=== PATIENT | female | born 1995 | race American Indian/Alaskan Native ===

== ENCOUNTER 2016-09-16 21:45 | Outpatient (CLI) | payer BC, MEDICAID ==
[2016-09-17 00:23] LABS: Bilirubin,Urine NEG (Negative); Blood,Urine NEG (Negative); Ketones,Urine NEG (Negative); Leukocyte Esterase,Urine TR (Negative); Mucus,Urine FEW /HPF; Nitrite,Urine NEG (Negative); Protein,Urine <15 mg/dL mg/dL (Negative); Urobilinogen,Urine < 2.0 mg/dL (<2.0)
[2016-09-17] MEDS ORDERED: LACTATED RINGERS 500 ML IV ONE (00:45)
[2016-09-17] MEDS ORDERED: BRETHINE SUB-Q PRN (02:35)
[2016-09-17] MEDS ORDERED: LACTATED RINGERS 1,000 ML IV SCH (03:00)
[2016-09-17 03:24] VITALS: BP 114/77
== END 2016-09-17 04:13 | disposition home or self-care (01) ==
LOC: TRG 21:45
PROVIDERS: ATTEND Obstetrics & Gynecology
DX: O62.0 Primary inadequate contractions (principal); O77.9 Labor and delivery complicated by fetal stress, unspecified; Z3A.34 34 weeks gestation of pregnancy
CPT/HCPCS: 59025; 81001; 96360; 96361; 96372; J3105; J7120

== ENCOUNTER 2016-09-26 21:33 | Outpatient (CLI) | payer BC, MEDICAID ==
[2016-09-26 21:46] VITALS: BP 104/84
[2016-09-26 22:13] LABS: Bilirubin,Urine NEG (Negative); Blood,Urine NEG (Negative); Ketones,Urine NEG (Negative); Leukocyte Esterase,Urine NEG (Negative); Mucus,Urine FEW /HPF; Nitrite,Urine NEG (Negative); Protein,Urine <15 mg/dL mg/dL (Negative); Urobilinogen,Urine < 2.0 mg/dL (<2.0)
[2016-09-26] MEDS ORDERED: LACTATED RINGERS 1,000 ML ONE (22:29)
[2016-09-26] MEDS ORDERED: LACTATED RINGERS 1,000 ML IV SCH (23:00)
[2016-09-26] MEDS ORDERED: VISTARIL PO ONE (23:01)
== END 2016-09-26 23:06 | disposition home or self-care (01) ==
LOC: TRG 21:33
PROVIDERS: ATTEND Obstetrics & Gynecology
DX: O62.0 Primary inadequate contractions (principal); Z3A.35 35 weeks gestation of pregnancy
CPT/HCPCS: 81001; 96360; J7120; Q0177

== ENCOUNTER 2016-10-04 00:05 | Inpatient (IN) | payer BC, MEDICAID ==
[~2016-10-04 00:05] MED LIST: POLYCILLIN/NS 2 GM/100 ML 2 GM/100 ML BAG IV ONE
[2016-10-04] MEDS ORDERED: LACTATED RINGERS 1,000 ML ONE (00:25)
[2016-10-04] MEDS ORDERED: BRETHINE IVP PRN (01:58)
[2016-10-04] MEDS ORDERED: ZOFRAN IV PRN (01:58)
[2016-10-04] MEDS ORDERED: BRETHINE SUB-Q PRN (01:58)
[2016-10-04] MEDS ORDERED: STADOL IV PRN (01:58)
[2016-10-04] MEDS ORDERED: ePHEDrine SULFATE IV PRN ×2 (01:58→11:30)
[2016-10-04] MEDS ORDERED: MINERAL OIL PO PRN (01:58)
[2016-10-04] MEDS ORDERED: PITOCin/NS 20 UNIT/1000ML DRIP 20 UNIT/1,000 ML BAG IV SCH (02:00)
[2016-10-04] MEDS ORDERED: LACTATED RINGERS 1,000 ML IV SCH ×2 (02:00)
[2016-10-04] MEDS ORDERED: PITOCin/NS 30 UNIT/500ML 30 UNIT/500 ML BAG IV SCH ×3 (02:00→06:00)
[2016-10-04 02:15] LABS: Hematocrit 30.3 % (30.3-42.9); Hemoglobin 10.3 gm/dl (10.1-14.3); Mean Corpuscular HGB Conc 34 % (30-34); Mean Corpuscular Hemoglobin 30 pg (28-32); Mean Corpuscular Volume 88 fl (79-97); Platelet Count 203 K/mm3 (140-440); Red Blood Count 3.44 M/mm3 (3.65-5.03); Red Cell Distribution Width 13.5 % (13.2-15.2); White Blood Count 9.3 K/mm3 (4.5-11.0)
[2016-10-04 02:25] LABS: Bilirubin,Urine NEG (Negative); Blood,Urine NEG (Negative); Ketones,Urine 20 mg/dL (Negative); Leukocyte Esterase,Urine NEG (Negative); Mucus,Urine FEW /HPF; Nitrite,Urine NEG (Negative); Protein,Urine <15 mg/dL mg/dL (Negative); Urobilinogen,Urine < 2.0 mg/dL (<2.0)
[2016-10-04] MEDS ORDERED: POLYCILLIN/NS 2 GM/100 ML 2 GM/100 ML BAG IV ONE (02:28)
--- NOTE | 2016-10-04 03:14 | History and Physical Report ---
History of Present Illness Date of examination: 10/04/16 Date of admission: 10/04/16 01:58 Chief complaint: 21 yo A1 at 37 weeks EDC who came in leah at 3 cm and was found to have JOSE of 6 compatible with probable ruptured membranes or oligohydramnios. She is admitted for delivery. Known GBS positive so will give antibiotics and augment if needed. History of present illness: Remainder of H&P from [facility] and confirmed today OB Intake Father of baby: Joshua Britton Vital Signs Height: 60 in. Weight (lb): 87 BMI: 17 Pre- Weight: 95 BP: 100/ 62 mm Hg Ur. Protein: negative Ur. Glucose: negative Chief Complaint/Current Status: Pt. presents x missed period; C/O discharge x 2 wks..............................driggins Menstrual History Regularity: regular Menses every: 28 days Duration: 5 to 7 LMP: 01/11/2016 LMP reliability: definite test type: urine test Date: 02/11/2016 EDC Calculations LMP: 10/17/2016 EDC Confirmation: 10/17/2016 Gestational Age: 9 1/7 weeks Past History : 3 Elect. Ab: 1 # 2 Delivery date: 2013 Delivery type: EAB Comments: denies Past Medical History: Reviewed history from 05/08/2012 and no changes required: Asthma inhaler use pt was dx with "stunted growth" had a feeding tube in place. It was removed when she was 14yo. Past Surgical History: Reviewed history from 05/08/2012 and no changes required: esoph surgery for acid reflux 10yo feeding tube Past Medical History Abnormal PAP: negative LULÚ Exposure: negative Infertility: negative Uterine Anomaly: negative Uterine Surgery (not C/S): negative Other Gynecologic Problems: negative Social Hx: Patient is single Student: [employer] Smoking History: Patient has never smoked. Infection History Hx of STD: none Personal hx. of genital herpes: no Partner hx. of genital herpes: no Rash, Viral, or Febrile illness since last LMP? no Varicella/Chicken Pox Status: Immunized TB Risk: no Genetic History Congenital Heart Defect: Mom: no Dad: no Karely Disease: Mom: no Dad: no Thalassemia Mom: no Dad: no Neural Tube Defect Mom: no Dad: no Down's Syndrome Mom: no Dad: no Yannick-Sachs Mom: no Dad: no Sickle Cell Disease/Trait Mom: no Dad: no Hemophilia Mom: no Dad: no Muscular Dystrophy Mom: no Dad: no Cystic Fibrosis Mom: no Dad: no [place] Chorea Mom: no Dad: no Mental Retardation Mom: no Dad: no Fragile X Mom: no Dad: no Other Genetic/Chromosomal Disorder Mom: no Dad: no Child w/other defect Mom: no Dad: no Enviromental Exposures Xray Exposure: no Medication, drug, or alcohol use since LMP: no Chemical/Other Exposure: no Exposure to Cat Liter: no Hx of Parvovirus (Fifth Disease): no Occupational Exposure to Children: none Active Medications (reviewed today): DEPO-PROVERA 150 MG/ML IM SUSP (MEDROXYPROGESTERONE ACETATE) 1 IM injection q3 months Current Allergies: No known allergies Laboratory Results Date/Time Collected: 03/15/2016 Routine Urinalysis Leukocytes: negative Nitrite: negative Urobilinogen: negative Protein: negative Blood: negative Ketone: negative Bilirubin: negative Glucose: negative Urine HCG: positive Review of Systems General Denies fever, chills, sweats, anorexia, fatigue, weakness, malaise, weight loss and sleep disorder. Denies nausea, vomiting, headache, swelling of legs, abdominal pain, vaginal discharge, vaginal bleeding and contractions. Denies vaginal discharge, incontinence, dysuria, hematuria, urinary frequency, amenorrhea, menorrhagia, abnormal vaginal bleeding, pelvic pain, genital sores, decreased libido, painful periods, painful sex, urinary urgency, hot flashes, vaginal dryness, vaginal itching and vaginal odor. CV Denies chest pains, palpitations, syncope, dyspnea on exertion, orthopnea, PND and peripheral edema. Resp Denies cough, dyspnea at rest, excessive sputum, hemoptysis, wheezing and pleurisy. GI Denies nausea, vomiting, diarrhea, constipation, change in bowel habits, abdominal pain, melena, hematochezia, jaundice, gas/bloating, indigestion/ heartburn, dysphagia and odynophagia. Endo Denies cold intolerance, heat intolerance, polydipsia, polyphagia, polyuria and unusual weight change. Breast Denies left breast lump, right breast lump, nipple discharge, bloody discharge from nipple, breast pain, abnormal mammogram and breast enlargement. MS Denies back pain, joint pain, joint swelling, muscle cramps, muscle weakness, stiffness, arthritis, sciatica, restless legs, leg pain at night and leg pain with exertion. Derm Denies rash, itching, dryness and suspicious lesions. Neuro Denies paralysis, paresthesias, headache, seizures, tremors, vertigo, transient blindness, frequent falls, frequent headaches and difficulty walking. Psych Denies depression, anxiety, irritability and mood swings. Eyes Denies blurring, diplopia, irritation, discharge, vision loss, eye pain and photophobia. ENT Denies earache, ear discharge, tinnitus, decreased hearing, nasal congestion, nosebleeds, sore throat and hoarseness. Allergy Denies urticaria, allergic rash, hay fever and recurrent infections. Heme Denies abnormal bruising, bleeding and enlarged lymph nodes. PHYSICAL EXAM HEENT: PERRLA, normal conjunctiva, external nose and nasal mucosa normal, oropharynx clear Neck/Thyroid: supple, thyroid normal Skin no significant abnormal lesions or rashes Chest: respiratory effort normal, clear to auscultation Breasts: normal without skin changes or masses CV: regular, normal S1-S2, no murmur, no rub, no gallop Abdomen: normal bowel sounds, soft, nontender, no HSM Musculoskeletal: grossly normal ROM in joints, no joint tenderness or muscle weakness Neuro: grossly normal DTRs, sensation, strength, cranial nerves Extremities: no clubbing, cyanosis, or edema [employer] Exams Vulva/Vagina: No lesions, normal BUS, normal rugae Cervix: No lesions; no cervical motion tenderness Uterus: normal size and position, midline, mobile Adnexae: no masses or tenderness Rectovaginal: no masses or tenderness Flowsheet View for Follow-up Visit Estimated weeks of gestation: 9 09/04 Weight: 87 Blood pressure: 100 / 62 Urine protein: negative Urine glucose: negative Urine nitrite: negative Past History - Obstetrical History : 3 Medications and Allergies Allergies Allergy/AdvReac Type Severity Reaction Status Date / Time No Known Allergies Allergy Verified 03/20/16 20:00 Home Medications Medication Instructions Recorded Confirmed Last Taken Type No Known Home Medications [No 10/04/16 10/04/16 Unknown History Reported Home Medications] Active Meds: Active Medications Butorphanol Tartrate (Stadol) 2 mg IV Q2H PRN PRN Reason: Pain , Severe (7-10) Ampicillin Sodium (Polycillin/Ns 1 Gm/50 Ml) 1 gm in 50 mls @ 100 mls/hr IV Q4HR MARIO PRN Reason: Protocol Lactated Ringer's (Lactated Ringers) 1,000 mls @ 125 mls/hr IV DIRECT MARIO Oxytocin/Sodium Chloride (Pitocin/Ns 20 Unit/1000ml Drip) 20 unit in 1,000 mls @ 125 mls/hr IV DIRECT MARIO Oxytocin/Sodium Chloride (Pitocin/Ns 30 Unit/500ml) 30 unit in 500 mls @ 0 mls/ hr IV TITR MARIO; Per Protocol PRN Reason: Protocol Oxytocin/Sodium Chloride (Pitocin/Ns 30 Unit/500ml) 30 unit in 500 mls @ 1 mls/ hr IV TITR MARIO; 1 MILLIUNITS/MIN PRN Reason: Protocol Mineral Oil (Mineral Oil) 30 ml PO QHS PRN PRN Reason: Constipation Ondansetron HCl (Zofran) 4 mg IV Q8H PRN PRN Reason: Nausea And Vomiting - Vital Signs Vital signs: Vital Signs Pulse Pulse Ox 197 H 82 L 10/04/16 00:24 10/04/16 00:24 Temp Pulse Resp BP Pulse Ox 98.3 F 92 H 18 125/83 99 10/04/16 01:03 10/04/16 01:31 10/04/16 01:03 10/04/16 00:25 10/04/16 01:31 Results Result Diagrams: 10/04/16 02:00 Abnormal lab results 10/04/16 Range/Units 02:00 RBC 3.44 L (3.65-5.03) M/mm3 All other labs normal.
[2016-10-04] MEDS: POLYCILLIN/NS 1 GM/50 ML 1 GM/50 ML BAG IV SCH ×2 (06:04→09:56)
--- NOTE | 2016-10-04 07:00 | Progress Note ---
Assessment and Plan IUP @ 37 weeks with oligo and prodromal labor Labor augmentation GBS+ / 2nd dose of ampicillin administered. Pitocin per protocol. Re-eval as needed Pt may have epidural when requested. Subjective - Subjective Date of service: 10/04/16 (pt tolerating labor well ) Patient reports: movement normal Objective - Vital Signs Vital Signs: Vital Signs - 12hr 10/04/16 10/04/16 10/04/16 00:24 00:25 00:30 Temperature Pulse Rate 197 H 89 94 H Respiratory Rate Blood Pressure 125/83 O2 Sat by Pulse 82 L 94 96 Oximetry 10/04/16 10/04/16 10/04/16 00:34 00:35 00:37 Temperature Pulse Rate 87 105 H 83 Respiratory Rate Blood Pressure O2 Sat by Pulse 98 97 98 Oximetry 10/04/16 10/04/16 10/04/16 00:42 00:47 00:52 Temperature Pulse Rate 96 H 87 96 H Respiratory Rate Blood Pressure O2 Sat by Pulse 97 99 98 Oximetry 10/04/16 10/04/16 10/04/16 00:54 00:59 01:03 Temperature 98.3 F Pulse Rate 88 89 Respiratory 18 Rate Blood Pressure O2 Sat by Pulse 99 98 Oximetry 10/04/16 10/04/16 10/04/16 01:04 01:09 01:15 Temperature Pulse Rate 84 75 79 Respiratory Rate Blood Pressure O2 Sat by Pulse 98 97 97 Oximetry 10/04/16 10/04/16 10/04/16 01:20 01:25 01:30 Temperature Pulse Rate 82 82 86 Respiratory Rate Blood Pressure O2 Sat by Pulse 97 99 99 Oximetry 10/04/16 10/04/16 10/04/16 01:31 05:57 06:26 Temperature Pulse Rate 92 H 84 71 Respiratory Rate Blood Pressure 109/63 116/67 O2 Sat by Pulse 99 Oximetry - Exam Breasts: deferred Cardiovascular: Regular rate Lungs: Normal air movement Abdomen: Present: normal appearance, soft. Absent: distention, tenderness Uterus: Present: normal FHR: auscultation normal, category 1 Uterine Contraction Monitor Mode: External Cervical Dilatation: 3 (amniotic bag palpated) Cervical Effacement Percentage: 60 station: 0 Uterine Contraction Pattern: Regular Uterine Contraction Intensity: Moderate Extremities: normal Deep Tendon Reflex Grade: Normal +2 - Labs Labs: Abnormal Labs 10/04/16 02:00 RBC 3.44 L Laboratory Results - last 24 hr 10/04/16 10/04/16 10/04/16 00:30 02:00 02:00 WBC 9.3 RBC 3.44 L Hgb 10.3 Hct 30.3 MCV 88 MCH 30 MCHC 34 RDW 13.5 Plt Count 203 Urine Color Yellow Urine Turbidity Clear Urine pH 7.0 Ur Specific [place] 1.017 Urine Protein <15 mg/dl Urine Glucose (UA) Neg Urine Ketones 20 Urine Blood Neg Urine Nitrite Neg Urine Bilirubin Neg Urine Urobilinogen < 2.0 Ur Leukocyte Esterase Neg Urine WBC (Auto) 1.0 Urine RBC (Auto) 2.0 U Epithel Cells (Auto) < 1.0 Urine Mucus Few Blood Type B POSITIVE Antibody Screen Negative
--- NOTE | 2016-10-04 09:00 | Event Note ---
Date: 10/04/16 (pt asking about epidural) ISE applied w/o fluid return SVE 4,70,0 Pit @ 16mu. Bolus for epidural.
[2016-10-04] MEDS ORDERED: ePHEDrine SULFATE ONE (09:06)
--- NOTE | 2016-10-04 09:27 | Ultrasound Report ---
OB LIMITED TECHNIQUE : Transabdominal ultrasound with Doppler interrogation. Gestation: [place] Position: Cephalic Amniotic Fluid: Decreased (< 7 cm) JOSE = 6.17 cm Placenta: Posterior, fundal Placental Grade: I Heart Rate: 146 BPM
--- NOTE | 2016-10-04 10:31 | Anesthesia Consultation ---
Anesthesia Consult and Med Hx Date of service: 10/04/16 - Airway Anesthetic Teeth Evaluation: Good ROM Head & Neck: Adequate Mental/Hyoid Distance: Adequate Intubation Access Assessment: Good - Pre-Operative Health Status ASA Pre-Surgery Classification: ASA2, Emergency Proposed Anesthetic Plan: Epidural, Spinal - Pulmonary Hx Smoking: No Hx Asthma: Yes (inhaler prn) COPD: No Hx Pneumonia: No Hx Sleep Apnea: No - Cardiovascular System Hx Hypertension: No - Central Nervous System Hx Seizures: No Hx Psychiatric Problems: No - Endocrine Hx Renal Disease: No Hx End Stage Renal Disease: No Hx Hypothyroidism: No Hx Hyperthyroidism: No - Hematic Hx Anemia: No Hx Sickle Cell Disease: No - Other Systems Hx Alcohol Use: No Hx Cancer: No
[2016-10-04] MEDS ORDERED: XYLOCAINE MPF 2% ONE ×2 (10:45)
[2016-10-04] MEDS ORDERED: fentaNYL-BUPIV 2 MCG/ML-0.125% 200 MCG/100 ML BAG EPIDURAL SCH (11:00)
[2016-10-04] MEDS ORDERED: NARCAN 2 MG/2 ML IV PRN (11:30)
[2016-10-04] MEDS ORDERED: NORCO 5/325 PO PRN (11:58)
[2016-10-04] MEDS ORDERED: PHENERGAN PO PRN (11:58)
[2016-10-04] MEDS ORDERED: TUCKS PAD TP PRN (11:58)
[2016-10-04] MEDS ORDERED: DULCOLAX PR PRN (11:58)
[2016-10-04] MEDS ORDERED: TYLENOL PO PRN (11:58)
[2016-10-04] MEDS ORDERED: DERMOPLAST TP PRN (11:58)
[2016-10-04] MEDS ORDERED: BENADRYL PO PRN (11:58)
[2016-10-04] MEDS ORDERED: MILK OF MAGNESIA PO PRN (11:58)
[2016-10-04] MEDS ORDERED: LANSINOH TP PRN (11:58)
[2016-10-04] MEDS ORDERED: SODIUM CHLORIDE FLUSH SYRINGE 10 ML IV NR (12:00)
[2016-10-04] MEDS: MOTRIN PO SCH ×2 (13:37→22:36)
--- NOTE | 2016-10-04 20:16 | Procedure Note ---
OB Delivery Note - Delivery Date of Delivery: 10/04/16 (late entry) Machine Maintenance Repairer: EDIN DAVIS (del @ 3182) Estimated blood loss: 300cc - Vaginal Delivery presentation: vertex Delivery position: OA Intrapartum events: other(please specify) (IUGR / @ 37 weeks) Delivery induction: none Delivery augmentation: pitocin Delivery monitor: internal FHT, internal uterine Route of delivery: Delivery placenta: spontaneous Delivery cord: nuchal cord, 3 umbilical vessels Episiotomy: none Delivery laceration: none Anesthesia: epidural Delivery comments: live born male over intact perineum Placed on mom skin to skin Placenta and membrane delivered complete and intact, 3 vessel cord Placenta to pathology. 8/9, EBL 300, Wgt 4-1 Pit IVFs Mom and baby remain LDR stable - A at 1 minute: 8 at 5 minutes: 9 Infant Gender: Male (wgt 4-1)
[2016-10-05] MEDS: MOTRIN PO SCH ×4 (01:16→18:29)
[2016-10-05 01:18] LABS: Hematocrit 25.5 % (30.3-42.9); Hemoglobin 8.7 gm/dl (10.1-14.3)
--- NOTE | 2016-10-05 08:02 | Progress Note ---
Assessment and Plan Patient doing well, no complaints. Dai herzog, KATYAF, H&H 8.7/25.5, anemia d /t blood loss - acute. Pt is asymptomatic for anemia. Plan to start po iron, rx for discharge home. Pt requesting to stay until tomorrow d/t infant being in NICU. Will write d/c for tomorrow. - Patient Problems (1) Anemia due to blood loss, acute Current Visit: Yes Status: Acute Plan to address problem: Asymptomatic, will rx Iron supplementation (2) Spontaneous vaginal delivery Current Visit: Yes Status: Acute Subjective - Subjective Date of service: 10/05/16 Principal diagnosis: DAY #1 s/p , IUGR Patient reports: appetite normal, voiding normally, pain well controlled, ambulating normally, no dizzy ambulation, no nauseated : in NICU Objective - Vital Signs Latest vital signs: Vital Signs Temp Pulse Pulse Resp BP BP Pulse Ox 10/05/16 00:40 98 F 80 18 95/60 10/04/16 20:50 98.2 F 74 18 109/67 10/04/16 15:30 98.4 F 82 18 120/67 10/04/16 15:02 68 99 10/04/16 15:01 74 138/65 10/04/16 14:57 80 99 10/04/16 14:52 78 99 10/04/16 14:47 78 99 10/04/16 14:45 77 77 18 147/79 147/79 99 10/04/16 14:42 78 98 10/04/16 14:37 91 H 100 10/04/16 14:32 74 99 10/04/16 14:30 75 74 18 154/77 154/77 99 10/04/16 14:27 73 100 10/04/16 14:22 74 98 10/04/16 14:17 76 99 10/04/16 14:15 74 153/74 10/04/16 14:12 78 100 10/04/16 14:07 81 99 10/04/16 14:02 77 100 10/04/16 14:01 84 151/71 10/04/16 14:00 84 18 151/71 100 10/04/16 13:57 76 99 10/04/16 13:52 77 100 10/04/16 13:47 74 100 10/04/16 13:42 76 100 10/04/16 13:37 74 18 100 10/04/16 13:32 74 100 10/04/16 13:31 73 132/80 10/04/16 13:30 73 18 132/80 100 10/04/16 13:27 74 100 10/04/16 13:19 76 100 10/04/16 13:15 78 74 18 166/90 166/90 99 10/04/16 13:14 78 100 10/04/16 13:09 75 100 10/04/16 13:04 75 100 10/04/16 13:01 75 166/91 10/04/16 13:00 72 18 166/91 100 10/04/16 12:59 74 100 10/04/16 12:54 72 100 10/04/16 12:49 72 100 10/04/16 12:46 75 167/79 10/04/16 12:45 75 18 167/79 100 10/04/16 12:44 74 100 10/04/16 12:39 74 97 10/04/16 12:37 72 90 10/04/16 12:34 77 100 10/04/16 12:31 71 152/81 90 10/04/16 12:30 72 18 152/81 100 10/04/16 12:29 69 100 10/04/16 12:25 94 H 18 158/65 100 10/04/16 12:24 71 100 10/04/16 12:23 71 158/65 10/04/16 12:19 75 100 10/04/16 12:14 77 100 10/04/16 12:09 84 100 10/04/16 12:04 89 100 10/04/16 12:00 98.1 F 95 H 95 H 18 130/84 130/84 100 10/04/16 11:46 82 134/83 10/04/16 11:41 88 100 10/04/16 11:36 87 100 10/04/16 11:32 78 133/72 10/04/16 11:31 81 100 10/04/16 11:26 81 100 10/04/16 11:21 82 100 10/04/16 11:17 81 131/78 10/04/16 11:16 85 100 10/04/16 11:11 88 18 125/79 100 10/04/16 11:06 80 100 10/04/16 11:01 79 125/79 100 10/04/16 10:56 84 100 10/04/16 10:51 84 100 10/04/16 10:46 84 100 10/04/16 10:43 79 156/67 10/04/16 10:41 78 100 10/04/16 10:39 80 128/71 10/04/16 10:38 84 131/68 10/04/16 10:36 135 H 93 10/04/16 10:33 78 90 10/04/16 10:32 83 141/63 10/04/16 10:31 84 100 10/04/16 10:26 81 99 10/04/16 10:21 76 134/80 98 10/04/16 10:19 78 127/76 10/04/16 10:17 79 124/78 10/04/16 10:16 85 99 10/04/16 10:15 81 126/82 10/04/16 10:13 79 127/84 10/04/16 10:11 81 129/77 99 10/04/16 10:06 92 H 98 10/04/16 10:05 85 136/75 10/04/16 10:04 97.7 F 94 H 18 136/75 99 10/04/16 09:56 138/96 10/04/16 09:27 76 136/85 10/04/16 08:57 85 134/68 10/04/16 08:27 75 128/71 Intake and Output 10/04/16 10/05/16 10/05/16 22:59 06:59 14:59 Intake Total 1075 240 Output Total 1400 Balance -325 240 Intake: IV 875 PITOCin/NS 20 UNIT/1000ML 875 DRIP 20 unit In 1,000 ml @ 125 mls/hr IV DIRECT MARIO Rx#:[id number] Oral 200 Intake, Free Water 240 Output: Urine 1400 Void 1400 Other: Total, Intake Amount 200 Total, Output Amount 350 # Voids Void 1 - Exam Breasts: Present: normal Cardiovascular: Present: Regular rate Lungs: Present: Clear to auscultation, Normal air movement Abdomen: Present: normal appearance, soft Vulva: both: normal Uterus: Present: normal, firm, fundal height at umbilicus Extremities: Present: normal Deep Tendon Reflex Grade: Normal +2 - Labs Labs: Abnormal lab results 10/05/16 Range/Units 01:03 Hgb 8.7 L (10.1-14.3) gm/dl Hct 25.5 L (30.3-42.9) %
--- NOTE | 2016-10-05 08:05 | Discharge Summary ---
Providers - Providers Date of Admission: 10/04/16 01:58 Date of discharge: 10/06/16 Attending physician: RIMMA KENYON Primary care physician: RIMMA KENYON Hospitalization Reason for admission: active labor Delivery: Episiotomy: none Laceration: none Other procedures: none complications: none Discharge diagnosis: IUP at term delivered baby: male Hospital course: uncomplicated vaginal delivery Condition at discharge: Good Disposition: DISCHARGED TO HOME OR SELFCARE - Discharge Diagnoses (1) Anemia due to blood loss, acute Status: Acute (2) Spontaneous vaginal delivery Status: Acute Plan - Discharge Medications Prescriptions: Ferrous Sulfate [Feosol 325 MG tab] 325 mg PO TID #90 tablet Ibuprofen [Motrin 800 MG tab] 800 mg PO Q8HR PRN #30 tablet PRN Reason: Pain Lidocain2.5%/Prilocai2.5% [Emla] 5 gm TP ONCE PRN #1 tube PRN Reason: Pain - Provider Discharge Summary Activity: routine, no sex for 6 weeks, no heavy lifting 4 weeks, no strenuous exercise Diet: routine Instructions: routine Additional instructions: [] Smoking cessation referral if applicable(refer to patient education folder for contact #) [] Refer to [facility] Booklet Call your doctor immediately for: * Fever > 100.5 * Heavy vaginal bleeding ( >1 pad per hour) * Severe persistent headache * Shortness of breath * Reddened, hot, painful area to leg or breast * Drainage or odor from incision. * Keep incision clean and dry at all times and follow doctor's instructions regarding bathing/showering - Follow up plan Follow up: RIMMA KENYON MD [Primary Care Provider] - 10/26/16 (Congratulations! Please call [phone] to schedule your visit in 4 weeks and your son's circumscision when he is discharged from the NICU. Call for any questions or concerns. )
[2016-10-05] MEDS: COLACE PO SCH (10:05)
[2016-10-05] MEDS: FEOSOL PO SCH (10:05)
[2016-10-05] MEDS ORDERED: M-M-R II VACCINE SUB-Q ONE (11:58)
[2016-10-05] MEDS ORDERED: BOOSTRIX IM ONE (11:58)
--- NOTE | 2016-10-05 12:49 | Progress Note ---
Subjective Date of service: 10/05/16 Principal diagnosis: DAY #1 s/p , IUGR Interval history: 1st day after normal vaginal delivery Patient is in the bed, comfortable. Pain is controlled with pain meds. Ambulated well. No residual neurological deficit. No anesthesia complications Objective - Constitutional Vitals: Vital Signs - 12hr 10/05/16 10/05/16 08:25 12:11 Temperature 98.1 F Pulse Rate [ 72 Left From Monitor] Respiratory 18 20 Rate Blood Pressure 128/80 [Right Arm] - Labs CBC & Chem 7: 10/05/16 01:03 Labs: Abnormal lab results 10/05/16 Range/Units 01:03 Hgb 8.7 L (10.1-14.3) gm/dl Hct 25.5 L (30.3-42.9) %
[2016-10-06] MEDS: FEOSOL PO SCH (09:51)
[2016-10-06] MEDS: COLACE PO SCH (09:52)
[2016-10-06 11:20] VITALS: BP 112/68
== END 2016-10-06 10:00 | disposition home or self-care (01) | DRG 775 ==
LOC: TRG 00:05 → LD 01:58 → OB 15:39
PROVIDERS: ADMIT Obstetrics & Gynecology; ATTEND Obstetrics & Gynecology
PROC: 10E0XZZ Delivery of Products of Conception, External Approach (ICD-10-PCS; principal; 2016-10-04)
PROC: 00HU33Z Insertion of Infusion Device into Spinal Canal, Percutaneous Approach (ICD-10-PCS; 2016-10-04)
PROC: 3E0R3CZ (ICD-10-PCS; 2016-10-04)
DX: O69.81X0 Labor and delivery complicated by cord around neck, without compression, not applicable or unspecified (principal); D62 Acute posthemorrhagic anemia; O99.02 Anemia complicating childbirth; O99.52 Diseases of the respiratory system complicating childbirth; J45.909 Unspecified asthma, uncomplicated; O99.824 Streptococcus B carrier state complicating childbirth; Z3A.37 37 weeks gestation of pregnancy; Z37.0 Single live birth
CPT/HCPCS: 36415; 76815; 81001; 85014; 85018; 85027; 86592; 86850; 86900; 86901; 88307; 99211; G0463; J0290; J2590; J7120